=== PATIENT | female | born 2005 | race Two or more races ===

== ENCOUNTER 2025-02-24 09:56 | Emergency (ER) | payer MEDICAID, SELFPAY ==
[2025-02-24 10:19] VITALS: BP 134/95; PULSE 81; RESP 18; TEMP 36.9; O2SAT 95; BMI 48.9
--- NOTE | 2025-02-24 10:28 | PD.EDHAND ---
Upper Extremity Injury RME/HPI General Chief Complaint: Hand/Wrist Problems Stated Complaint: FINGER TIPS HURTING ON/OFF x 4 DAYS Time Seen by Provider: 02/24/25 09:57 Arrival date/time: 02/24/25 09:56 19-year-old female presents to the Emergency Department today complaints of right hand pain 4th and 5th digits intermittently for the last year Limitations: no limitations Related Data Home Medications ?Medication ?Instructions ?Recorded ?Confirmed albuterol sulfate 90 mcg/actuation 2 puff inhalation Q6HR PRN 09/27/15 aerosol inhaler (ProAir HFA) SHORTNESS OF BREATH #0 inhalations Allergies Allergy/AdvReac Type Severity Reaction Status Date / Time coconut Allergy Severe Difficulty Verified 02/24/25 10:01 Breathing ibuprofen (From Motrin) Allergy Severe Difficulty Verified 02/24/25 10:01 Breathing Review of Systems Review of Systems Systems Reviewed: All systems reviewed, normal except as documented Constitutional Constitutional: Reports system reviewed and no additional complaints, except as documented, Denies fever(s) and Denies headache(s) Eyes Eyes: Reports system reviewed and no additional complaints, except as documented and Denies blurry vision ENT Ears, Nose, Mouth, and Throat: Reports system reviewed and no additional complaints, except as documented, Denies headache(s), Denies nasal congestion and Denies nasal discharge Cardiovascular Cardiovascular: Reports system reviewed and no additional complaints, except as documented, Denies chest pain and Denies dyspnea Respiratory Respiratory: Reports system reviewed and no additional complaints, except as documented, Denies chest congestion, Denies cough and Denies dyspnea Gastrointestinal Gastrointestinal: Reports system reviewed and no additional complaints, except as documented and Denies abdominal pain Musculoskeletal Musculoskeletal: Reports system reviewed and no additional complaints, except as documented, Denies arthralgias, Denies deformity, Denies numbness, Denies stiffness, Denies tingling and Reports other (Right hand pain intermittently for 1 year) Integumentary/Breasts Skin/Breast: Reports system reviewed and no additional complaints, except as documented and Denies rash Neurologic Neurologic: Reports system reviewed and no additional complaints, except as documented, Reports as per HPI, Denies headache(s), Denies numbness and Denies tingling Past Medical History Social History SMOKING STATUS: Never smoker ED Exam General Limitations: Present no limitations General appearance: Present alert and in no apparent distress Head Head exam: Present atraumatic, normocephalic and normal inspection Eye Eye exam: Present normal appearance, PERRL and EOMI; Absent conjunctival injection ENT ENT exam: Present normal exam, normal oropharynx and mucous membranes moist Neck Neck exam: Present normal inspection, full ROM and trachea midline Chest Chest inspection: Present normal inspection and symmetric chest wall rise Respiratory Respiratory exam: Present normal lung sounds bilaterally Cardiovascular Cardiovascular exam: Present regular rate, normal rhythm and normal heart sounds Abdominal Exam Abdominal exam: Present soft and normal bowel sounds Extremities Exam Extremities exam: Present normal inspection, full ROM and normal capillary refill; Absent tenderness or joint swelling Back Exam Back exam: Present normal inspection and full ROM Neurological Exam Neurological exam: Present alert, oriented X3 and CN II-XII intact Psychiatric Psychiatric exam: Present normal affect and normal mood Skin Skin exam: Present warm, dry, intact and normal color Course Quality Measures none Vital Signs Vital signs: Vital Signs Temperature 98.4 F 02/24/25 10:19 Pulse Rate 81 02/24/25 10:19 Respiratory Rate 18 02/24/25 10:19 Blood Pressure 134/95 H 02/24/25 10:19 Pulse Oximetry (%) 95 02/24/25 10:19 Oxygen Delivery Method Room Air 02/24/25 10:19 O2 saturation 95% on room air within the limits Extremity Injury MDM Narrative MDM Narrative:: 19-year-old female presents to the Emergency Department today complaints of right hand pain 4th and 5th digits intermittently for the last year On exam patient well-appearing patient is not appear ill or toxic patient to make a fist with both hands move all fingers without difficulty no evidence of tendon or ligamentous injury I suspect patient may have a nerve impingement at times and this was causing her pain Patient discharged home in no distress to follow-up with primary care doctor in the next 24 to 48 hours and for any worsening symptoms to return to the ER immediately Patient data External records reviewed:: [facility] previous records Clinical information provided by:: patient Social determinants that could affect healthcare access:: none Patient has the following chronic illnesses:: None How is presenting disease/condition affected by chronic disease/condition?: no chronic disease Evaluation data The following diagnostics were reviewed and interpreted by me:: other (specify) Lab and/or radiology exams considered but not ordered:: Considered not ordered Interpretation Summary: N/A Medications / Prescriptions Medications or Prescriptions considered but not ordered:: No meds Medication administrations:: No Meds Consultations Consultation(s) initiated? (list below): No Diagnosis Upper Extremity Injury Differential Diagnosis: other (Finger sprain, finger fracture, nerve impingement) Most likely diagnosis given after review of the tests above:: Nerve impingement Admission Indicated Admission indicated?: not indicated Admission Request Was there a request for admission?: No Disposition Plan Disposition Plan: Discharge Discharge Attestation Discharge Attestation: The patient and all family members were given an opportunity to ask questions and understood the discharge instructions. Discharge instructions specifically effects, indications for sooner follow up or return to the emergency department, and the expected course of current diagnosis. Patient condition: Stable Discharge Plan Plan Patient Disposition: HOME (Self Care) Disposition Comment: Stable Prescriptions/Referrals Prescriptions/Med Rec: No Action albuterol sulfate [ProAir HFA] 8.5 GM HFA aerosol inhaler 2 puff Inhalation Q6HR PRN (Reason: SHORTNESS OF BREATH) Qty: 0 Problem List Clinical Impression: Hand pain, right Patient/Caregiver Discharge Instructions Education Materials: ED RICE Additional Instructions: Please follow up with your primary care doctor in the next 24-48hrs for any worsening symptoms return here immediately Print Language: Panamanian Stand Alone Forms: Lor Award Info., Patient Portal Info Letter ANI/ROMEO Supervising Physician ANI/ROMEO Supervising Physician: Dr Joe
== END 2025-02-24 10:50 | disposition home or self-care (01) ==
LOC: SERX 10:38
PROVIDERS: Emergency Provider Emergency Medicine
DX: M79.641 Pain in right hand (principal)
CPT/HCPCS: 99281

== ENCOUNTER → 2025-08-28 | Outpatient (BNVA) | payer MEDICAID, SELFPAY | END | disposition home or self-care (01) | PROVIDERS: PCP Nurse Practitioner Family; Referring Provider Nurse Practitioner Family; Visit Provider Nurse Practitioner Family | DX: Z00.00 Encounter for general adult medical examination without abnormal findings (principal); F32.1 Major depressive disorder, single episode, moderate; F41.9 Anxiety disorder, unspecified; G47.00 Insomnia, unspecified; Z23 Encounter for immunization; Z87.890 Personal history of sex reassignment | CPT/HCPCS: 90471; 90472; 90700; 90715; 99204 ==

== ENCOUNTER → 2025-09-25 | Outpatient (BNVA) | payer MEDICAID, SELFPAY | END | disposition home or self-care (01) | PROVIDERS: PCP Nurse Practitioner Family; Referring Provider Nurse Practitioner Family; Visit Provider Nurse Practitioner Family | DX: F32.1 Major depressive disorder, single episode, moderate (principal); G47.00 Insomnia, unspecified; J45.909 Unspecified asthma, uncomplicated; F41.9 Anxiety disorder, unspecified | CPT/HCPCS: 99213 ==

== ENCOUNTER → 2025-09-27 | Outpatient (BNVA) | payer MEDICAID, SELFPAY | END | disposition home or self-care (01) | PROVIDERS: PCP Nurse Practitioner Family; Referring Provider Nurse Practitioner Family; Visit Provider Nurse Practitioner Family | DX: Z00.01 Encounter for general adult medical examination with abnormal findings (principal); J45.909 Unspecified asthma, uncomplicated; G43.909 Migraine, unspecified, not intractable, without status migrainosus; F41.9 Anxiety disorder, unspecified; F32.1 Major depressive disorder, single episode, moderate; Z13.220 Encounter for screening for lipoid disorders; Z13.1 Encounter for screening for diabetes mellitus; Z11.3 Encounter for screening for infections with a predominantly sexual mode of transmission; E66.9 Obesity, unspecified; K02.9 Dental caries, unspecified; Z71.85 Encounter for immunization safety counseling; Z68.43 Body mass index [BMI] 50.0-59.9, adult | CPT/HCPCS: 99173; 99215 ==

== ENCOUNTER → 2025-10-11 | Outpatient (BNVA) | payer MEDICAID, SELFPAY | END | disposition home or self-care (01) | PROVIDERS: PCP Nurse Practitioner Primary Care; Referring Provider Nurse Practitioner Primary Care; Visit Provider Nurse Practitioner Primary Care | DX: M54.50 Low back pain, unspecified (principal); E55.9 Vitamin D deficiency, unspecified; J30.2 Other seasonal allergic rhinitis; R82.90 Unspecified abnormal findings in urine | CPT/HCPCS: 99213 ==

== ENCOUNTER → 2025-10-12 | Outpatient (CLI) | payer MEDICAID, SELFPAY ==
--- NOTE | 2025-10-12 11:01 | XR_ITS ---
EXAMINATION: Lumbar spine 3 views TECHNIQUE: AP lateral coned lateral lower lumbar spine 3 views Date and time: October 12, 2025, 11:31 a.m. INDICATIONS: Lower back pain beginning 5 months ago. FINDINGS: Malalignment lumbar vertebral bodies No lumbar fracture Moderate disc narrowing L5-S1 No spondylolisthesis IMPRESSION: Moderate disc narrowing L5-S1
== END | disposition home or self-care (01) ==
LOC: CDIM 10:45
PROVIDERS: PCP Nurse Practitioner Primary Care; Referring Provider Nurse Practitioner Primary Care; Visit Provider Nurse Practitioner Primary Care
DX: M48.07 Spinal stenosis, lumbosacral region (principal)
CPT/HCPCS: 72100

== ENCOUNTER → 2025-10-19 | Outpatient (BNVA) | payer MEDICAID, SELFPAY | END | disposition home or self-care (01) | PROVIDERS: PCP Nurse Practitioner Primary Care; Referring Provider Nurse Practitioner Primary Care; Visit Provider Nurse Practitioner Primary Care | DX: M51.370 Other intervertebral disc degeneration, lumbosacral region with discogenic back pain only (principal); R82.90 Unspecified abnormal findings in urine | CPT/HCPCS: 81001; 99214 ==

== ENCOUNTER → 2025-10-23 | Outpatient (BNVA) | payer MEDICAID, SELFPAY | END | disposition home or self-care (01) | PROVIDERS: PCP Nurse Practitioner Family; Referring Provider Nurse Practitioner Family; Visit Provider Nurse Practitioner Family | DX: F32.1 Major depressive disorder, single episode, moderate (principal); F41.9 Anxiety disorder, unspecified; G47.00 Insomnia, unspecified; F64.9 Gender identity disorder, unspecified | CPT/HCPCS: 99213 ==